=== PATIENT | male | born 1985 | race Caucasian/White ===

== ENCOUNTER → 2019-10-11 15:58 | Outpatient (BNVA) | payer OTHER, SELFPAY | PROVIDERS: Visit Provider Registered Nurse | DX: Z00.00 Encounter for general adult medical examination without abnormal findings (principal) | CPT/HCPCS: 80053; 80061; 80306; 80307; 83036; 83721; 85007; 85027 ==

== ENCOUNTER → 2022-02-03 13:17 | Outpatient (BNVA) | payer OTHER, SELFPAY | PROVIDERS: Visit Provider Registered Nurse | DX: Z79.899 Other long term (current) drug therapy (principal) | CPT/HCPCS: 80053; 80061; 83036; 84443; 85025 ==

== ENCOUNTER → 2022-11-24 09:33 | Outpatient (BNVA) | payer MEDICAID, SELFPAY | PROVIDERS: Visit Provider Family Medicine | DX: R10.9 Unspecified abdominal pain (principal); I10 Essential (primary) hypertension | CPT/HCPCS: 80053; 80061; 81000 ==

== ENCOUNTER → 2022-12-22 09:03 | Outpatient (BNVA) | payer MEDICAID, SELFPAY | PROVIDERS: Visit Provider Family Medicine | DX: M54.50 Low back pain, unspecified (principal); M79.605 Pain in left leg; M54.2 Cervicalgia; G89.29 Other chronic pain | CPT/HCPCS: 72040; 72100 ==

== ENCOUNTER 2023-03-06 12:00 | Outpatient (CLI) | payer BC, MEDICAID, SELFPAY | END 2023-03-06 12:01 | disposition home or self-care (01) | LOC: SLEEP 03-07 12:14 | PROVIDERS: PCP Family Medicine; Visit Provider Family Medicine | DX: R06.81 Apnea, not elsewhere classified (principal); G47.10 Hypersomnia, unspecified | CPT/HCPCS: G0399 ==

== ENCOUNTER → 2023-06-27 10:39 | Outpatient (BNVA) | payer BC, MEDICAID, SELFPAY | PROVIDERS: PCP Family Medicine; Visit Provider Family Medicine | DX: M54.2 Cervicalgia (principal); G89.29 Other chronic pain; I10 Essential (primary) hypertension; I63.9 Cerebral infarction, unspecified | CPT/HCPCS: 80048 ==

== ENCOUNTER → 2024-05-08 13:14 | Outpatient (BNVA) | payer BC, SELFPAY | PROVIDERS: PCP Family Medicine; Visit Provider Family Medicine | DX: I10 Essential (primary) hypertension (principal); R22.9 Localized swelling, mass and lump, unspecified | CPT/HCPCS: 80053; 80061; 85651; 86038; 86140 ==

== ENCOUNTER → 2024-06-20 13:16 | Outpatient (BNVA) | payer BC, SELFPAY | PROVIDERS: PCP Family Medicine; Referring Provider Psychiatry & Neurology Neurology; Visit Provider Internal Medicine Cardiovascular Disease | DX: R94.31 Abnormal electrocardiogram [ECG] [EKG] (principal); I49.8 Other specified cardiac arrhythmias; R07.9 Chest pain, unspecified | CPT/HCPCS: 93005 ==

== ENCOUNTER 2024-07-18 10:22 | Outpatient (CLI) | payer BC, MEDICAID, SELFPAY ==
--- NOTE | 2024-07-18 | ECG_ITS ---
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 The perfusion scan will be documented separately. DATA: Baseline heart rate was 64 beats per minute. Baseline blood pressure was 147/95 millimeters of mercury. Target heart rate was 180 maximum heart rate achieved was 105. which was 58% of the predicted target heart rate. Maximum blood pressure was 147/98 millimeters of mercury. The reason for ending the test was completion of the protocol. The patient did not experience any symptoms. ELECTROCARDIOGRAM: BASELINE: Sinus rhythm. Normal axis. Otherwise, no ST-T changes suggestive of ischemia noted. No arrhythmia noted. EXERCISE: After Lexiscan injection, no ST-T changes suggestive of ischemic noted. No arrhythmia noted. CONCLUSION: Please note due to baseline abnormality of the EKG specificity and sensitivity of the EKG portion of LexiScan MIBI stress test will be low 1. EKG not suggestive of ischemia 2. Lexiscan injection unremarkable. 3. Perfusion scan will be documented separately. Electronically Signed On 07-28-2024 17:59:24 CDT by DEANNE PARMAR [email or web address]
--- NOTE | 2024-07-18 10:51 | NMCV_ITS ---
NM eusebia perf SPECT r/s* [id number] Duglas Vazquez Age: 38 Gender: M : 1985 Exam Date: 07/18/2024 11:07 Ordering Phys: Deanne Gilbert MD ([email or web address]) Technologist: NISHI Rodriguez Exam Location: [facility] Indications: cp STRESS TEST Please see separate stress test report in [facility] for full findings IMAGE PROTOCOL Rest/Stress 1 Lexiscan Day Radiopharmaceutical Dose (mCi) Administration Site Administered by Rest: Tc-99m IV NISHI Barron Sestamibi Stress:Tc-99m 32.6 IV NISHI Barron Sestamibi Rest: 18-Jul-2024 30 Discovery 630 Stress: 18-Jul-2024 15 Discovery 630 0.4mg Lexiscan. Images obtained in supine and prone position. SPECT RESULTS Technical Quality: Good Raw Data Analysis: Normal Image Corrections: No attenuation or motion correction applied Summed Stress Score: 0 Summed Rest Score: 0 Summed Difference Score: 0 PERFUSION FINDINGS Medium sized area of fixed perfusion defect noted in basal to mid inferior wall on both stress and rest images suggestive of old myocardial infarction versus artifact in the absence of wall motion FUNCTIONAL RESULTS (calculated via Gated SPECT) Stress Image LV EF (%): 64 Stress EDV (mL):103 TID: 0.96 Stress ESV (mL):37 FUNCTIONAL FINDINGS: There is normal left ventricular systolic function. IMPRESSIONS This study is negative for ischemia. EKG segment will be documented separately. Deanne Gilbert MD (Electronically Signed) Final Date: 18 July 2024 21:07 S
[2024-07-18 10:53] VITALS: BMI 27.3
[2024-07-18] MEDS: regadenoson 0.4 Mg/5 ml Syringe IVP (11:45)
[2024-07-18 12:11] VITALS: BP 137/79; PULSE 77
== END 2024-07-18 10:23 | disposition home or self-care (01) ==
PROVIDERS: PCP Family Medicine; Visit Provider Internal Medicine Cardiovascular Disease
DX: R07.9 Chest pain, unspecified (principal); R06.02 Shortness of breath
CPT/HCPCS: 36415; 78452; 93017; 96374; A9500; J2785

== ENCOUNTER 2024-07-23 14:28 | Outpatient (CLI) | payer BC, MEDICAID, SELFPAY ==
--- NOTE | 2024-07-23 14:45 | USCV_ITS ---
Duglas Vazquez Age: 38 Gender: M : 1985 Exam Date: 07/23/2024 14:48 Ordering Phys: Deanne Gilbert MD ([email or web address]) Technologist: NAYANA Exam Location: [facility] [place] Indication: CHEST PAIN AND SHORTNESS OF BREATH BP: 140 / 110 HR: 81 Rhythm: Sinus Technical Quality: Adequate MEASUREMENTS (Male / Female) Normal Values 2D ECHO LV Diastolic Diameter PLAX 4.3 cm 4.2 - 5.9 / 3.9 - 5.3 cm IVS Diastolic Thickness 0.9 cm 0.6 - 1.0 / 0.6 - 0.9 cm IVS Systolic Thickness 1.6 cm LVPW Diastolic Thickness 1.7 cm 0.6 - 1.0 / 0.6 - 0.9 cm LVPW Systolic Thickness 2.0 cm LVOT Diameter 2.0 cm LV Ejection Fraction 2D Teich 67.9 % LV Ejection Fraction MOD 4C 61.7 % LV Ejection Fraction MOD 2C 59.0 % LV Ejection Fraction 2C AL 59.1 % LA Diameter 2.0 cm RA Systolic Volume 4C AL 13.9 ml RA Systolic Volume 4C MOD 13.2 ml LA Sys Volume AL 14.3 cm cubed LA Sys Volume Index AL 7.4 cm cubed/m squared Aorta at Sinotubular Diameter 2.2 cm IVC Diameter 1.8 cm M-MODE LA Ao Ratio MM 0.7 AV Cusp Separation MM 1.8 cm DOPPLER AV Peak Velocity 160.0 cm/s LVOT Peak Velocity 113.0 cm/s AV Area Cont Eq vti 2.1 cm squared AV Area Cont Eq pk 2.2 cm squared MV Peak Velocity 82.0 cm/s MV Area PHT 3.8 cm squared Mitral E to A Ratio 1.1 TV Peak Velocity 107.5 cm/s TR Peak Velocity 162.0 cm/s TR Peak Gradient 10.5 mmHg TR Mean Velocity 133.0 cm/s TR Mean Gradient 7.5 mmHg TR Velocity Time Integral 48.2 cm TV Peak E Velocity 49.0 cm/s Right Atrial Pressure 3.0 mmHg Pulmonary Artery Systolic Pressu 13.5 mmHg PV Peak Velocity 124.0 cm/s RV Ejection Time 0.3 s FINDINGS Left Ventricle Normal left ventricular size, systolic function and wall thickness, with no regional wall motion abnormalities. Left ventricular ejection fraction is estimated at 60 %. Grade I/IV diastolic dysfunction (abnormal relaxation filling pattern), normal to mildly elevated filling pressures. Right Ventricle The right ventricle is normal in size and function. Right Atrium The right atrium is normal in size. Left Atrium The left atrium is normal in size. Mitral Valve Mildly thickened mitral valve. Trace mitral valve regurgitation. Aortic Valve Structurally normal aortic valve without significant sclerosis or stenosis. There is no aortic regurgitation. Tricuspid Valve Thickened tricuspid valve. No tricuspid valve stenosis. Mild tricuspid valve regurgitation. Pulmonic Valve Structurally normal pulmonic valve without significant stenosis. There is no pulmonic regurgitation. Pericardium Normal pericardium without effusion. Aorta Normal ascending aorta dimension. IVC The inferior vena cava appears normal. CONCLUSIONS Normal left ventricular size, systolic function and wall thickness, with no regional wall motion abnormalities. Left ventricular ejection fraction is estimated at 60 %. Grade I/IV diastolic dysfunction (abnormal relaxation filling pattern), normal to mildly elevated filling pressures. Thickened tricuspid valve. No tricuspid valve stenosis. Mild tricuspid valve regurgitation. There is no pericardial effusion. Pulmonary artery systolic pressure is within normal limits. Right atrial pressure is around 5 mm of mercury. Deanne Gilbert MD (Electronically Signed) Final Date: 23 July 2024 19:44 S
== END 2024-07-23 14:29 | disposition home or self-care (01) ==
LOC: RAD 14:29
PROVIDERS: PCP Family Medicine; Visit Provider Internal Medicine Cardiovascular Disease
DX: I50.30 Unspecified diastolic (congestive) heart failure (principal); I36.9 Nonrheumatic tricuspid valve disorder, unspecified; R06.02 Shortness of breath
CPT/HCPCS: 93306

== ENCOUNTER 2024-07-30 16:15 | Outpatient (CLI) | payer BC, MEDICAID, SELFPAY ==
--- NOTE | 2024-07-30 16:18 | CT_ITS ---
WS: [id number] CT ABDOMEN WITH AND WITHOUT CONTRAST HISTORY: BENIGN NEOPLASM SKIN OF TRUNK Contiguous single phase 5 mm axial imaging performed to the abdomen. Oral contrast has not been provi ded. Coronal and sagittal reformats are submitted. All CT scans at [facility] use at least on e of these dose optimization techniques: automated exposure control; mA and/or kV adjustment per melissa ent size (includes targeted exams where dose is matched to clinical indication); or iterative reconst ruction. IV CONTRAST: Omnipaque 350; 100 mL IV. Oral contrast: No DLP: 522.77 mGy.cm COMPARISON: None available. Lower thorax: Benign calcified granuloma RIGHT lower lobe. There is an additional micronodule in the periphery of the RIGHT lower lobe. No mass or consolidation. Heart is normal size. Moderate-sized her marlen. Liver/biliary system: Normal size with no intrahepatic dilatation. Gallbladder: Normal. No gallstones or wall thickening. No pericholecystic fluid. Pancreas: Normal size pancreas and pancreatic duct. No adjacent inflammation. Spleen: Normal size spleen. No mass or infarct. Splenic granulomata. Adrenal glands: Normal. Right kidney: Normal. Left kidney: Normal. Aorta: Normal. Lymphadenopathy: None. Free fluid: None. GI tract: Marked distention of the stomach with fluid and food products. No small bowel obstruction. The visualized colon included within the abdomen CT is negative for obstruction or mass. There are a few diverticula noted in the LEFT colon. The appendix is only partially visualized but normal. Abdominal wall: Fat containing umbilical hernia. Visualized osseous structures: Unremarkable. CT/CT abdomen wo/w con [id number] IMPRESSION: 1. No ascites or adenopathy within the abdomen. 2. There is marked distention of the stomach with fluid and food products. Thi s may be due to a recent meal ingestion. Gastroparesis may appear similar. 3. No renal obstruction. 4. No subcutaneous soft tissue masses.
[2024-07-30] MEDS: iohexol 350 mg/mL 500 mL Btl (per mL) IV (16:34)
== END 2024-07-30 16:16 | disposition home or self-care (01) ==
LOC: RAD 16:16
PROVIDERS: PCP Family Medicine; Visit Provider Dermatology
DX: R91.1 Solitary pulmonary nodule (principal); D23.5 Other benign neoplasm of skin of trunk; J84.10 Pulmonary fibrosis, unspecified; K44.9 Diaphragmatic hernia without obstruction or gangrene; D73.89 Other diseases of spleen; K57.90 Diverticulosis of intestine, part unspecified, without perforation or abscess without bleeding; K42.9 Umbilical hernia without obstruction or gangrene
CPT/HCPCS: 74170

== ENCOUNTER → 2025-04-08 08:44 | Outpatient (BNVA) | payer BC, MEDICAID, SELFPAY | PROVIDERS: PCP Family Medicine; Visit Provider Family Medicine | DX: I10 Essential (primary) hypertension (principal); J44.9 Chronic obstructive pulmonary disease, unspecified | CPT/HCPCS: 80053; 80061; 85025 ==